=== PATIENT | male | born 2005 | race Two or more races ===

== ENCOUNTER 2025-08-31 13:24 | Emergency (ER) | payer OTHER ==
[~2025-08-31] VITALS: Ht 162.6 cm; Wt 63.5 kg
[2025-08-31] MEDS ORDERED: 0.9 % SODIUM CHLORIDE 500 ML IV ONE (14:30)
[2025-08-31 15:06] LABS: URINE APPEARANCE Turbid; URINE BILIRRUBIN Small (NEGATIVE); URINE BLOOD Moderate; URINE COLOR Red; URINE GLUCOSE Negative (NEGATIVE); URINE KETONE Negative (NEGATIVE); URINE LEUKOCYTE Moderate; URINE NITRATE Positive; URINE UROBILINOGEN 1.0 E.U./dl
[2025-08-31 15:07] LABS: URINE BACTERIA 386.4 uL (0.0-1933); URINE EPITHELIAL CELLS 1.5 uL (0.0-38.8); URINE WBC 583.5 uL (0.0-23.2)
[2025-08-31 15:30] LABS: URINE CAST 0.67 uL (0.0-1.40); URINE PROTEIN 100 (NEGATIVE); URINE RBC > 10558.9 uL (0.0-20.8)
[2025-08-31 15:38] LABS: BASO % 0.4 % (0.1-1.2); EOS # 0.30 (0.04-0.54); EOS % 2.2 % (0.7-7.0); LYMPH # 2.56 (1.18-3.74); LYMPH % 18.4 % (19.3-53.1); MEAN PLATELET VOLUME 10.10 fl (9.4-12.4); MONO # 0.81 (0.24-0.82); MONO % 5.8 % (4.7-12.5); NEUT # 9.77 (1.56-6.13); NEUT % 70.3 % (34.0-71.1); RED CELL DISTRIBUTION WIDTH 12.8 % (11.6-14.4)
[2025-08-31 15:50] LABS: ALT/SGPT 115.0 U/L (12-78); AST/SGOT 40.0 U/L (15-37); BILIRUBIN TOTAL 0.8 mg/dL (0.3-1.2); BUN CREA RATIO 36.0 (7.0-25.0); CREATININE SERUM 0.84 mg/dL (0.70-1.30); GFR 116.49; GLOBULINA 4.3 G/DL (2.4-3.5); GLUCOSE FASTING 98.0 mg/dL (65-100); OSMOLALITY SERUM 286.0 MOSM/KG (275-295)
[2025-08-31 15:51] LABS: INR 1.09
== END 2025-08-31 23:35 | disposition home or self-care (01) ==
LOC: ER 13:25 → EMR PED 13:58
PROVIDERS: Pediatrics
DX: N39.0 Urinary tract infection, site not specified (principal); R42 Dizziness and giddiness; N39.9 Disorder of urinary system, unspecified